=== PATIENT | male | born 1990 | race Caucasian/White ===

== ENCOUNTER → 2017-05-11 | Outpatient (CLI) | payer SELFPAY | LOC: M WUC 15:02 | DX: S00.83XA Contusion of other part of head, initial encounter (principal); X58.XXXA Exposure to other specified factors, initial encounter; Y93.9 Activity, unspecified ==

== ENCOUNTER → 2017-05-13 | Outpatient (CLI) | payer SELFPAY | LOC: M WUC 14:41 | DX: S90.32XD Contusion of left foot, subsequent encounter (principal); X58.XXXA Exposure to other specified factors, initial encounter; Y92.89 Other specified places as the place of occurrence of the external cause; Y93.89 Activity, other specified; Y99.8 Other external cause status | CPT/HCPCS: 73630 ==